=== PATIENT | female | born 1955 | race Caucasian/White ===

== ENCOUNTER → 2023-11-22 06:37 | Outpatient (REF) | payer MEDICARE, OTHER, SELFPAY ==
[2023-11-22 08:02] LABS: % Basophils 1.7 % (0-2); % Eosinophils 3.9 % (0-6); % Immature Granulocytes 0.2 % (0-0.5); % Lymphocytes 31.8 % (20.5-51.1); % Monocytes 8.2 % (1.7-9.3); % Neutrophils 54.2 % (42.2-75.2); Absolute Basophils 0.1 10^3/uL (0-0.2); Absolute Eosinophils 0.2 10^3/uL (0-0.7); Absolute Lymphocytes 1.5 10^3/uL (1.2-3.4); Absolute Monocytes 0.4 10^3/uL (0.1-0.6); Absolute Neutrophils 2.5 10^3/uL (1.4-6.5); Hematocrit 44.5 % (37.0-47.0); Hemoglobin 14.8 g/dL (12.0-16.0); Mean Corp Hgb Conc. 33.3 g/dL (33.0-37.0); Mean Corpuscular Volume 87.1 fL (81.0-99.0); Mean Platelet Volume 10.3 fL (7.4-10.4); Nucleated Red Blood Cells % 0 %; Platelet Count 227 10^3/uL (130-400); Red Blood Cell Count 5.11 10^6/uL (4.20-5.40); Red Cell Dist. Width 13.6 % (11.5-14.5); White Blood Cell Count 4.7 10^3/uL (4.8-10.8)
[2023-11-22 08:21] LABS: ALT (SGPT) 12 U/L (0-35); AST (SGOT) 23 U/L (14-36); Albumin 4.5 g/dl (3.5-5.0); Alkaline Phosphatase 83 U/L (38-126); Blood Urea Nitrogen 9 mg/dl (7-17); Calcium 9.9 mg/dl (8.4-10.2); Carbon Dioxide 26 mmol/L (22-30); Chloride 103 mmol/L (98-107); Glucose 103 mg/dl (70-99); HDL Cholesterol 53 mg/dl; LDL Cholesterol, Calculated 124 mg/dl; Potassium 4.3 mmol/L (3.5-5.1); Sodium 144 mmol/L (135-145); Total Bilirubin 0.8 mg/dl (0.2-1.3); Total Cholesterol 204 mg/dl (50-199); Total Protein 6.7 g/dl (6.3-8.2); Triglyceride 139 mg/dl (10-149); Very Low Density Lipoprotein 27 mg/dl (0-30); eGFR > 60.00
[2023-11-22 08:44] LABS: TSH Reflex To Free T4 < 0.02 uIU/ml (0.47-4.68)
[2023-11-22 09:12] LABS: Free T4 2.54 ng/dl (0.78-2.19)
== END ==
LOC: REG 06:37
PROVIDERS: ATTENDING PHYSICIAN Internal Medicine
DX: Z00.00 Encounter for general adult medical examination without abnormal findings (principal); E78.5 Hyperlipidemia, unspecified; E03.9 Hypothyroidism, unspecified; E21.3 Hyperparathyroidism, unspecified
CPT/HCPCS: 36415; 80053; 80061; 84439; 84443; 85025

== ENCOUNTER → 2024-01-31 07:43 | Outpatient (REF) | payer MEDICARE, OTHER, SELFPAY ==
[2024-01-31 09:55] LABS: TSH Reflex To Free T4 < 0.02 uIU/ml (0.47-4.68)
[2024-01-31 10:23] LABS: Free T4 1.44 ng/dl (0.78-2.19)
== END ==
LOC: RAD 07:43
PROVIDERS: ATTENDING PHYSICIAN Internal Medicine
DX: Z87.891 Personal history of nicotine dependence (principal); E03.9 Hypothyroidism, unspecified
CPT/HCPCS: 36415; 71271; 84439; 84443

== ENCOUNTER → 2024-02-06 07:28 | Outpatient (REF) | payer MEDICARE, OTHER, SELFPAY ==
[2024-02-06 08:13] LABS: Ammonia < 9 umol/L (9-30)
[2024-02-06 08:37] LABS: Erythrocyte Sed Rate 7 mm/hour (0-20)
[2024-02-08 12:22] LABS: Lyme Antibody Screen, EIA Negative (Negative); Syphilis/T. pallidum Ab Reflex Negative (Negative)
== END ==
LOC: RAD 07:28
PROVIDERS: ATTENDING PHYSICIAN Internal Medicine
DX: R41.3 Other amnesia (principal)
CPT/HCPCS: 36415; 70450; 82140; 85652; 86618; 86780

== ENCOUNTER → 2024-02-27 13:51 | Outpatient (REF) | payer MEDICARE, OTHER, SELFPAY | LOC: WDC 13:51 | PROVIDERS: ATTENDING PHYSICIAN Internal Medicine | DX: Z12.31 Encounter for screening mammogram for malignant neoplasm of breast (principal) | CPT/HCPCS: 77063; 77067 ==

== ENCOUNTER 2024-05-14 14:03 | Outpatient (RCR) | payer MEDICARE, OTHER, SELFPAY | END 2024-05-14 23:59 | disposition home or self-care (01) | LOC: RPT 14:03 | PROVIDERS: ATTENDING PHYSICIAN Physical Medicine & Rehabilitation | DX: M75.02 Adhesive capsulitis of left shoulder (principal); Z73.6 Limitation of activities due to disability; M25.512 Pain in left shoulder; M62.81 Muscle weakness (generalized) | CPT/HCPCS: 97010; 97110; 97140; 97162 ==

== ENCOUNTER 2024-06-04 12:58 | Outpatient (RCR) | payer MEDICARE, OTHER, SELFPAY | END 2024-06-05 07:36 | disposition home or self-care (01) | LOC: RPT 12:58 | PROVIDERS: ATTENDING PHYSICIAN Physical Medicine & Rehabilitation | DX: M75.02 Adhesive capsulitis of left shoulder (principal); M25.512 Pain in left shoulder; M62.81 Muscle weakness (generalized); Z73.6 Limitation of activities due to disability | CPT/HCPCS: 97010; 97110; 97140 ==

== ENCOUNTER → 2024-08-01 07:51 | Outpatient (REF) | payer MEDICARE, OTHER, SELFPAY | LOC: RAD 07:51 | PROVIDERS: ATTENDING PHYSICIAN Internal Medicine | DX: Z87.891 Personal history of nicotine dependence (principal); R63.4 Abnormal weight loss | CPT/HCPCS: 71046 ==

== ENCOUNTER → 2024-12-01 06:59 | Outpatient (REF) | payer MEDICARE, OTHER, SELFPAY ==
[2024-12-01 08:15] LABS: Hematocrit 43.2 % (37.0-47.0); Hemoglobin 14.3 g/dL (12.0-16.0); Mean Corp Hgb Conc. 33.1 g/dL (33.0-37.0); Mean Corpuscular Volume 86.2 fL (81.0-99.0); Nucleated Red Blood Cells % 0 %; Platelet Count 247 10^3/uL (130-400); Red Cell Dist. Width 12.6 % (11.5-14.5)
[2024-12-01 08:40] LABS: ALT (SGPT) 18 U/L (0-35); AST (SGOT) 23 U/L (14-36); Albumin 4.4 g/dl (3.5-5.0); Alkaline Phosphatase 86 U/L (38-126); Blood Urea Nitrogen 10 mg/dl (7-17); Calcium 9.9 mg/dl (8.4-10.2); Carbon Dioxide 28 mmol/L (22-30); Chloride 108 mmol/L (98-107); Glucose 101 mg/dl (70-99); HDL Cholesterol 54 mg/dl; LDL Cholesterol, Calculated 103 mg/dl; Potassium 4.2 mmol/L (3.5-5.1); Sodium 141 mmol/L (135-145); Total Protein 6.7 g/dl (6.3-8.2); Very Low Density Lipoprotein 40 mg/dl (0-30); eGFR > 60.00
== END ==
LOC: REG 06:59
PROVIDERS: ATTENDING PHYSICIAN Internal Medicine
DX: Z00.01 Encounter for general adult medical examination with abnormal findings (principal); E78.5 Hyperlipidemia, unspecified; E03.9 Hypothyroidism, unspecified
CPT/HCPCS: 36415; 80053; 80061; 84439; 84443; 85025